=== PATIENT | male | born 1950 | race Caucasian/White ===

== ENCOUNTER 2017-10-27 03:58 | Observation (INO) | payer BC ==
[2017-10-27] MEDS ORDERED: ASPIRIN 81 MG CHEWABLE TAB PO ONE (04:07)
[2017-10-27] MEDS ORDERED: NITROGLYCERIN 0.4 MG BTL SL PRN ×2 (04:07→06:03)
[2017-10-27] MEDS ORDERED: NS 1,000 ML IV ONE (04:07)
--- NOTE | 2017-10-27 04:07 | EDPHY ---
H & P Stated Complaint: chest pain last 3 nights, tonight down left arm, took ibuprofen no change Time Seen by Provider: 10/27/17 04:00 HPI/ROS: HPI CHIEF COMPLAINT: Chest pain HISTORY OF PRESENT ILLNESS: This patient very pleasant 67-year-old male, he states he is otherwise healthy with no significant medical history does not take any daily medications, he presents emergency room with chest discomfort. He describes it as left-sided and describes as"muscle pain" or Muscle ache. Patient states that he has left-sided muscle ache. He has noticed this for the last 3 nights. Wakes him from sleep around 3:00 a.m.. Tonight it was rather severe achy sensation left chest that wraps around to his left scapula. However what was different this evening was at that went down his left arm. Started at rest. Woke from sleep. The only thing he can think of in contribute to his that he has been working out more than normal he just recently started swimming again and initially for the 1st 2 nights of discomfort he thought it may have been musculoskeletal. However given that the pain went down his left arm he became more concerned that it may be cardiac. He has no history of cardiac disease. No history of stress test. Past Medical History: Erectile dysfunction and takes Cialis. Past Surgical History: Denies surgical history Social History: Does state that he has an alcoholic beverage at night, smokes marijuana, denies tobacco. Family History: Cardiac disease in his father. NE at age 45. ROS REVIEW OF SYSTEMS: A comprehensive 10 point review of systems is otherwise negative aside from elements mentioned in the history of present illness. Exam Constitutional appears well nontoxic no acute distress triage nursing summary reviewed, vital signs reviewed, awake/alert. Eyes normal conjunctivae and sclera, EOMI, PERRLA. HENT normal inspection, atraumatic, moist mucus membranes, no epistaxis, neck supple/ no meningismus, no raccoon eyes. Respiratory clear to auscultation bilaterally, normal breath sounds, no respiratory distress, no wheezing. Cardiovascular chest wall: Nontender palpation I cannot elicit any significant chest pain on exam, rate normal, regular rhythm, no murmur, no edema , distal pulses normal. Gastrointestinal soft, non-tender, no rebound, no guarding, normal bowel sounds, no distension, no pulsatile mass. Genitourinary no CVA tenderness. Musculoskeletal no midline vertebral tenderness, full range of motion, no calf swelling, no tenderness of extremities, no meningismus, good pulses, neurovascularly intact. Skin pink, warm, & dry, no rash, skin atraumatic. Neurologic awake, alert and oriented x 3, AAOx3, moves all 4 extremities equally, motor intact, sensory intact, CN II-XII intact, normal cerebellar, normal vision, normal speech. Psychiatric normal mood/affect. Heme/Lymph/Immune no lymphadenopathy. Differential diagnosis includes but is not limited to: ACS, atypical chest pain , pneumothorax, pneumonia, pulmonary embolism, aortic dissection, congestive heart failure, tumor, musculoskeletal pain, esophageal pain, GERD, peptic ulcer disease, pancreatitis Medical Decision Making: IV establishment full bus monitor obtain EKG and troponin rule out acute coronary syndrome, chest x-ray to rule out pneumothorax , blood work, full-dose aspirin, stay away from nitroglycerin as he takes Cialis. Re-evaluation: EKG interpretation by me on record in [employer] system. Impression time of EKG 4:11 a.m., sinus rhythm rate of 70 first-degree AV block NM interval [address] depression. No significant ST elevation. Cardiovascular risk factors include his age, family history, alcohol use ED x-ray chest one view: Cardiomegaly present. No evidence of lung infiltrates. Otherwise unremarkable chest x-ray. 0509: Extensive discussion had with the patient at bedside. Agrees for hospital admission for further chest pain evaluation. Here in the emergency room he has a chest x-ray shows cardiomegaly but otherwise unremarkable. Negative D-dimer negative troponin and nonischemic EKG. However the patient does have cardiac risk factors I do not have a great explanation for his chest pain. I do think it is reasonable to admit him to the hospital for further cardiac evaluation and stress testing. He has agreed for this. 0531: Extensive discussion with the patient about need for admission for chest pain evaluation. I do not have a great explanation for his chest discomfort it is possible is musculoskeletal however he has never had a cardiac evaluation he is 67 years of age she does have a family history of cardiac disease mildly obese I do think he would benefit from serial EKGs and troponins and stress test. He has agreed for this. 0537: Spoke with the hospitalist service Dr. Farah Agrees to admit agrees to stress. Source: Patient - Personal History Current Tetanus/Diphtheria Vaccine: Yes Current Tetanus Diphtheria and Acellular Pertussis (TDAP): Yes - Medical/Surgical History Hx Asthma: No Hx Chronic Respiratory Disease: No Hx Diabetes: No Hx Cardiac Disease: No Hx Renal Disease: No Hx Cirrhosis: No Hx Alcoholism: No Hx HIV/AIDS: No Hx Splenectomy or Spleen Trauma: No Other PMH: denies - Social History Smoking Status: Never smoked Constitutional: Initial Vital Signs Temperature (C) 36.5 C 10/27/17 03:58 Heart Rate 75 10/27/17 03:58 Respiratory Rate 18 10/27/17 03:58 Blood Pressure 155/84 H 10/27/17 03:58 O2 Sat (%) 94 10/27/17 03:58 O2 Delivery Mode Room Air Allergies/Adverse Reactions: No Known Allergies Allergy (Unverified 10/27/17 04:02) Home Medications: Medication Instructions Recorded Aspirin [Aspirin 325 mg (*)] 325 mg PO DAILY PRN 10/27/17 Herbals/Supplements -Info Only 1 ea PO DAILY 10/27/17 Sildenafil Citrate [Viagra 25 MG 25 mg PO DAILY PRN 10/27/17 (*)] Medical Decision Making - Data Points Laboratory Results: Laboratory Results 10/27/17 04:15 10/27/17 04:15 Medications Given: Discontinued Medications Aspirin (Aspirin) 324 mg PO EDNOW ONE Stop: 10/27/17 04:08 Last Admin: 10/27/17 04:28 Dose: Not Given Sodium Chloride (Ns) 1,000 mls @ 0 mls/hr IV EDNOW ONE; Wide Open PRN Reason: Protocol Stop: 10/27/17 04:08 Last Admin: 10/27/17 04:23 Dose: 1,000 mls Departure - Departure Disposition: [facility] Inpatient Acute Clinical Impression: Chest pain Qualifiers: Chest pain type: unspecified Qualified Code(s): R07.9 - Chest pain, unspecified Condition: Good
[2017-10-27 04:25] LABS: PLATELET COUNT 242 10^3/uL (150-400)
[2017-10-27 04:34] LABS: INR 0.95 (0.83-1.16); PROTIME(PATIENT) 12.9 SEC (12.0-15.0)
[2017-10-27 04:51] LABS: CREATINE KINASE 77 IU/L (0-224)
[2017-10-27] MEDS ORDERED: HYDROCODONE/APAP 5/325 TAB PO PRN (06:00)
[2017-10-27] MEDS ORDERED: ACETAMINOPHEN 325 MG TAB PO PRN (06:00)
[2017-10-27] MEDS ORDERED: ONDANSETRON 4 MG/2 ML VIAL IVP PRN (06:00)
[2017-10-27 06:46] VITALS: BP 141/88; PULSE 66; RESP 14; TEMP 97.9; O2SAT 92
--- NOTE | 2017-10-27 07:26 | PDGENHP ---
History and Physical - History of Present Illness Source-patient provides history and appears reliable. EMR was reviewed and case discussed with ED provider. HPI - this is a very pleasant 67-year-old gentleman with PET no significant past medical history who presents to the emergency department today with complaints of left-sided chest discomfort with associated radiation down his left arm. Patient is a quite active gentleman however the last several weeks he did develop the fluid had put his training for triathlon on hold due to illness. He recently restarted training and completing on lapse in subsequently developed some home left pectoral pain and that radiated around to his lat. Patient reports that for the last 3 evenings he has been woken up approximately 3:00 a.m. With increasing chest discomfort which he felt was likely due to his muscle strain. Patient reports that he would take several tabs of ibuprofen with improvement of his symptoms however this morning after taking ibuprofen he had no improvement in his discomfort. Additionally, when he woke up he also had associated numbness tingling running down his left arm to his finger tips. Patient subsequently also developed some diaphoresis. He denies any associated shortness of breath. He denies any recent fevers chills he has had a cough persistent but improving cough for last several weeks as well as nasal congestion. Patient denies any lower extremity edema no orthopnea. Patient's family history significant for CAD and ME in father who had ME at age 45. Patient does note that his father lived a quite unhealthy lifestyle including poor diet lack of exercise tobacco abuse, poor diet and history of diabetes. Patient's brother who is 70 years old is healthy. Patient has never previously had a stress test. He has been quite active and never experienced any chest pain or discomfort previously. History Information - Allergies/Home Medication List Allergies/Adverse Reactions: No Known Allergies Allergy (Unverified 10/27/17 04:02) Home Medications: NK [No Known Home Meds] 10/27/17 [Last Taken Unknown] I have personally reviewed and updated: family history, medical history, social history, surgical history - Past Medical History no pertinent PMH - Surgical History Additional surgical history: Cataract surgery bilaterally - Family History Additional family history: Father-CAD with ME age 40s, diabetes. Brother- healthy - Social History Smoking Status: Never smoked Alcohol Use: Occasionally (Patient reports a single evening cocktail routinely) Drug Use: Marijuana (At the balls at to assist with sleep) Additional social history: Patient is employed works in finance. Core-full Review of Systems Review of Systems: ROS: 10pt was reviewed & negative except for what was stated in HPI & below Constitutional: Denies: chills, fever EENMT: Reports: nose congestion. Denies: sore throat Cardiac: Reports: chest pain, other (See HPI). Denies: edema, lightheadedness, palpitations Respiratory: Reports: cough. Denies: orthopnea, shortness of breath Gastrointestinal: Denies: vomitting, abdominal pain, nausea Genitourinary: Denies: dysuria, hematuria Muscolosketal: Reports: muscle pain (Left chest, latissimus, scapular spasms) Skin: Reports: no symptoms Neurological: Reports: paresthesia (Left arm as per HPI). Denies: headache, weakness Hematologic/Lymphatic: Reports: no symptoms Physical Exam Physical Exam: Selected Entries 10/27/17 03:58 Blood Pressure Automatic Method Heart Rate 75 Respiratory 18 Rate O2 Sat (%) 94 Temperature (C) 36.5 C Blood Pressure 155/84 H Mean Arterial 107 H Pressure (MAP) O2 Delivery Room Air Mode Temperature Oral Source Temp Pulse Resp BP Pulse Ox 36.6 C 66 14 141/88 H 92 10/27/17 06:46 10/27/17 06:46 10/27/17 06:46 10/27/17 06:46 10/27/17 06:46 Constitutional: no apparent distress, other (NAD. Pleasant adult gentleman is lying quietly in bed.) Eyes: PERRL (Lens reflex appreciated bilaterally.), anicteric sclera, EOMI, No scleral injection Ears, Nose, Mouth, Throat: moist mucous membranes, no oral mucosal ulcers, No poor dentition Cardiovascular: regular rate and rhythym, no murmur, rub, or gallop, No edema Peripheral Pulses: 2+: dorsalis-pedis (R), dorsalis-pedis (L) Respiratory: no respiratory distress, clear to auscultation Gastrointestinal: normoactive bowel sounds, soft, non-tender abdomen, no palpable masses, No distension Genitourinary: no bladder tenderness, No streeter in urethra Skin: warm, normal color, no rashes or abrasions Musculoskeletal: muscular tenderness (Left pectoral, rhomboids spasm, left posterolateral left spasm) Neurologic: AAOx3, sensation intact bilaterally, CN II-XII Intact (Grossly intact.), No facial droop Psychiatric: interacting appropriately, not anxious, not encephalopathic, thought process linear Lab Data & Imaging Review 10/27/17 04:15 10/27/17 04:15 WBC 9.37 10^3/uL (3.80-9.50) 10/27/17 04:15 RBC 4.50 10^6/uL (4.40-6.38) 10/27/17 04:15 Hgb 14.0 g/dL (13.7-17.5) 10/27/17 04:15 Hct 42.4 % (40.0-51.0) 10/27/17 04:15 MCV 94.2 fL (81.5-99.8) 10/27/17 04:15 MCH 31.1 pg (27.9-34.1) 10/27/17 04:15 MCHC 33.0 g/dL (32.4-36.7) 10/27/17 04:15 RDW 13.9 % (11.5-15.2) 10/27/17 04:15 Plt Count 242 10^3/uL (150-400) 10/27/17 04:15 MPV 10.1 fL (8.7-11.7) 10/27/17 04:15 Neut % (Auto) 41.9 % (39.3-74.2) 10/27/17 04:15 Lymph % (Auto) 44.8 % (15.0-45.0) 10/27/17 04:15 [place] % (Auto) 8.4 % (4.5-13.0) 10/27/17 04:15 Eos % (Auto) 4.4 % (0.6-7.6) 10/27/17 04:15 Baso % (Auto) 0.4 % (0.3-1.7) 10/27/17 04:15 Nucleat RBC Rel Count 0.0 % (0.0-0.2) 10/27/17 04:15 Absolute Neuts (auto) 3.92 10^3/uL (1.70-6.50) 10/27/17 04:15 Absolute Lymphs (auto) 4.20 10^3/uL (1.00-3.00) H 10/27/17 04:15 Absolute Monos (auto) 0.79 10^3/uL (0.30-0.80) 10/27/17 04:15 Absolute Eos (auto) 0.41 10^3/uL (0.03-0.40) H 10/27/17 04:15 Absolute Basos (auto) 0.04 10^3/uL (0.02-0.10) 10/27/17 04:15 Absolute Nucleated RBC 0.00 10^3/uL (0-0.01) 10/27/17 04:15 Immature Gran % 0.1 % (0.0-1.1) 10/27/17 04:15 Immature Gran # 0.01 10^3/uL (0.00-0.10) 10/27/17 04:15 PT 12.9 SEC (12.0-15.0) 10/27/17 04:15 INR 0.95 (0.83-1.16) 10/27/17 04:15 APTT 26.9 SEC (23.0-38.0) 10/27/17 04:15 D-Dimer < 0.27 ug/mLFEU (0.00-0.50) 10/27/17 04:15 Sodium 140 mEq/L (135-145) 10/27/17 04:15 Potassium 4.5 mEq/L (3.5-5.2) 10/27/17 04:15 Chloride 103 mEq/L (97-110) 10/27/17 04:15 Carbon Dioxide 29 mEq/l (22-31) 10/27/17 04:15 Anion Gap 8 mEq/L (8-16) 10/27/17 04:15 BUN 25 mg/dL (7-23) H 10/27/17 04:15 Creatinine 0.9 mg/dL (0.7-1.3) 10/27/17 04:15 Estimated GFR > 60 10/27/17 04:15 Glucose 95 mg/dL (70-100) 10/27/17 04:15 Calcium 8.7 mg/dL (8.5-10.4) 10/27/17 04:15 Magnesium 1.9 mg/dL (1.6-2.3) 10/27/17 04:15 Total Bilirubin 0.4 mg/dL (0.1-1.4) 10/27/17 04:15 Conjugated Bilirubin 0.3 mg/dL (0.0-0.5) 10/27/17 04:15 Unconjugated Bilirubin 0.1 mg/dL (0.0-1.1) 10/27/17 04:15 AST 20 IU/L (17-59) 10/27/17 04:15 ALT 32 IU/L (21-72) 10/27/17 04:15 Alkaline Phosphatase 37 IU/L (38-126) L 10/27/17 04:15 Creatine Kinase 77 IU/L (0-224) 10/27/17 04:15 CK-MB (CK-2) Fraction 1.79 ng/mL (0.00-3.19) 10/27/17 04:15 Troponin I < 0.012 ng/mL (0.000-0.034) 10/27/17 04:15 NT-Pro-B Natriuret Pep 16 pg/mL (0-125) 10/27/17 04:15 Total Protein 6.3 g/dL (6.3-8.2) 10/27/17 04:15 Albumin 3.8 g/dL (3.5-5.0) 10/27/17 04:15 Lipase 99 IU/L (23-300) 10/27/17 04:15 Imaging Review: Chest [id number] report reviewed showing some mild cardiomegaly. Some right interstitial streaking. No significant changes from previously available chest x-ray CT chest imaging reviewed from 06/2017 - noting a left likely sebaceous cyst anterior chest wall mass on, rib fractures on the left multiple EKG Interpretation: Positive for: normal sinsus rhythm (First-degree AV block). Negative for: ST elevation, ST depression Assessment & Plan Assessment: Chest pain (Acute) - patient with initial concerns that his chest pain was likely musculoskeletal however the characteristics of this chest pain has changed this morning compared to previous evenings. Patient's heart score at this time given his reported history, age and positive family history is 4 and warrants a further evaluation with serial troponins and inpatient stress testing. Patient is quite active will order for p.r.n. Stress pending repeat troponin. Musculoskeletal strain - patient does have several areas of spasm and point tenderness consistent with, pectoral, rhomboid and latissimus spasms. Supportive care. Tylenol p.r.n. FEN - patient will be made NPO no IV fluids at this time. Electrolytes monitored no replacement required. PPX-SCDs will be ordered. Anticipate short hospital stay and hold off on prophylactic Lovenox pending stress test results. Core-full Disposition patient admitted to observation status on PCU for close cardiac monitoring.
--- NOTE | 2017-10-27 11:51 | CPR ---
[f rep st] NONINVASIVE CARDIAC PROCEDURE REPORT DATE OF PROCEDURE: 10/27/2017 PROCEDURE: Exercise treadmill test. INDICATION: The patient is a 67-year-old male who has complained of left-sided chest discomfort in t he mornings and afternoons for the past 3 to 4 days. He swims on a regular basis, but was unable to swim for 2 weeks. He resumed swimming on last week and noted chest discomfort after his swi m. Yesterday, the discomfort radiated into his arm and therefore, he presented to the hospital. His risk factors for coronary artery disease include a premature family history of coronary disease. Hi s father had an VT at the age of 48. DESCRIPTION OF PROCEDURE: Consent was obtained and the patient was placed on continuous telemetry. His resting EKG revealed normal sinus rhythm without ST changes to suggest ischemia. The patient wal ked on the treadmill for 9-1/2 minutes without any symptoms of chest discomfort or significant shortn ess of breath. The exercise portion of the study was discontinued secondary to maximal effort. He r emained in normal sinus rhythm throughout the study without any ST changes to suggest ischemia. He h ad rare PVCs in recovery. His blood pressure at rest was 122/80 and increased appropriately, peaking at 176/68. His blood pressure returned to baseline within 5 minutes. PLAN: Low risk exercise treadmill test. /[id number]/MODL
--- NOTE | 2017-10-27 13:31 | GDS ---
[f rep st] DISCHARGE SUMMARY ADMISSION DIAGNOSES: Known acute: 1. Chest pain, noncardiac in origin. 2. Musculoskeletal left arm pain secondary to swimming. CONSULTATIONS: None. PROCEDURES: Exercise stress test which was negative per conversation with Vanda Bolden. HOSPITAL COURSE: 67-year-old gentleman who presented with left arm and left-sided chest pain. Admis aster laboratories were normal, including troponin series which was normal. Chest x-ray showed no act tommy disease. Exercise stress test was entirely negative showing no evidence of coronary ischemia or cardiac rhythm disturbance. Gentleman has a significant family history of coronary disease, but has no personal history of the sa me. 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 It is believed that he has strained the rhomboid muscle of hi s left arm and it is causing radiating pain around to his left chest. The exam and findings were john paul wn and explained to the patient regarding our findings. DISCHARGE MEDICATIONS: Viagra 25 mg p.o. daily, herbal supplementation, aspirin 325 mg daily. PLAN: The gentleman will follow up with his PCP if the problem persists, recurs, or seems unexplaina ble. His PCP is Zena Iverson. I have shown the patient where I believe the musculoskeletal problem resides and how he may resolve i t. 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 Time this discharge required: 40 minutes, greater than 50% to adoption counselor, coordinate care, show the pat ient the findings in his left shoulder, and explain how he may resume his activities. /[id number]/MODL
== END 2017-10-27 12:20 | disposition home or self-care (01) ==
LOC: F2W 06:39
PROVIDERS: ADMIT Family Medicine; ATTEND Family Medicine
DX: R07.9 Chest pain, unspecified (principal); M79.602 Pain in left arm; Z82.49 Family history of ischemic heart disease and other diseases of the circulatory system
CPT/HCPCS: 71045; 93017; G0378